=== PATIENT | male | born 1960 | race Caucasian/White ===

== ENCOUNTER 2019-07-14 11:32 | Observation (INO) | payer OTHER ==
[~2019-07-14] VITALS: Ht 188 cm; Wt 90.4 kg
[~2019-07-14 11:32] MED LIST: AMLO5TAB4 PO; ASPI-831 PO; ATOR40TA68 PO; CHOL100062 PO; GLIP10TA14 PO; INSU100I33 SC; LINA5TAB PO; LISI-471 PO; MTF1000T PO; OMEG-135 PO; [UNRECOGNIZED DRUG - CODE] MC
[2019-07-14] MEDS ORDERED: ASPIRIN 81 MG TAB PO STA (11:44)
[2019-07-14] MEDS ORDERED: NITROGLYCERIN 2% 1 GM OINT PKT TD STA (11:44)
[2019-07-14] MEDS ORDERED: NITROGLYCERIN (SL) 0.4 MG TAB SL PRN (12:00)
[2019-07-14] MEDS ORDERED: ACETAMINOPHEN 325 MG TAB PO PRN ×2 (13:30→15:00)
[2019-07-14] MEDS ORDERED: ONDANSETRON 4 MG INJ IV PRN ×2 (13:30→15:00)
[2019-07-14] MEDS ORDERED: LORAZEPAM 0.5 MG TAB PO PRN (15:00)
[2019-07-14] MEDS ORDERED: morphine 2 MG INJ IV PRN (15:00)
[2019-07-14] MEDS ORDERED: ZOLPIDEM 5 MG TAB PO PRN (15:00)
[2019-07-14] MEDS ORDERED: DEXTROSE 50% 50 ML SYRINGE IV PRN ×2 (15:30)
[2019-07-14] MEDS ORDERED: GLUCOSE GEL 15 GRAM TUBE BUCCAL PRN (15:30)
[2019-07-14] MEDS ORDERED: GLUCAGON 1 MG INJ IM PRN (15:30)
[2019-07-14] MEDS ORDERED: GLUCOSE GEL 15 GRAM TUBE PO PRN ×2 (15:30)
[2019-07-14] MEDS: CHOLECALCIFEROL 1,000 UNIT TAB PO SCH (15:49)
[2019-07-14] MEDS: FISH OIL 1,000 MG CAP PO SCH (15:49)
[2019-07-14] MEDS: FAMOTIDINE 20 MG TAB PO SCH ×2 (15:49→22:05)
[2019-07-14] MEDS: DOCUSATE SODIUM 100 MG CAP PO SCH ×2 (15:49→22:05)
[2019-07-14] MEDS: LISINOPRIL 20 MG TAB PO SCH (15:51)
[2019-07-14] MEDS: AMLODIPINE 5 MG TAB PO SCH (15:51)
[2019-07-14] MEDS: INSULIN GLARGINE [LANTus] (100 UNITS/ML) SYG SC SCH (17:15)
[2019-07-14] MEDS: INSULIN ASPART [NOVOLOG] 3 ML PEN SC SCH (17:16)
[2019-07-14] MEDS: ACCU-CHEK XX SCH ×2 (17:26→22:09)
[2019-07-14] MEDS ORDERED: glipiZIDE 10 MG TAB PO SCH (17:30)
[2019-07-14 20:30] VITALS: BP 159/88; PULSE 68; RESP 18; Ht 188 cm; Wt 90.4 kg
[2019-07-14] MEDS ORDERED: ATORVASTATIN 40 MG TAB PO SCH (21:00)
[2019-07-14 23:45] VITALS: BP 159/90; PULSE 70; RESP 18
[2019-07-15] MEDS ORDERED: SUMATRIPTAN 6 MG/0.5 ML INJ SC ONE (00:30)
[2019-07-15] MEDS ORDERED: ACCU-CHEK XX SCH (02:00)
[2019-07-15 03:34] VITALS: BP 117/84; RESP 18
[2019-07-15 07:43] VITALS: BP 132/80; PULSE 70; RESP 18
[2019-07-15] MEDS: ACCU-CHEK XX SCH ×3 (07:58→17:36)
[2019-07-15] MEDS: INSULIN ASPART [NOVOLOG] 3 ML PEN SC SCH ×5 (08:00→17:38)
[2019-07-15] MEDS: INSULIN GLARGINE [LANTus] (100 UNITS/ML) SYG SC SCH (08:00)
[2019-07-15] MEDS: FAMOTIDINE 20 MG TAB PO SCH (08:33)
[2019-07-15] MEDS: CHOLECALCIFEROL 1,000 UNIT TAB PO SCH (08:33)
[2019-07-15] MEDS: DOCUSATE SODIUM 100 MG CAP PO SCH (08:33)
[2019-07-15] MEDS: FISH OIL 1,000 MG CAP PO SCH (08:33)
[2019-07-15] MEDS: LISINOPRIL 20 MG TAB PO SCH (08:33)
[2019-07-15] MEDS: AMLODIPINE 5 MG TAB PO SCH (08:34)
[2019-07-15] MEDS ORDERED: ENOXAPARIN 40 MG/0.4 ML SYG SC SCH (09:00)
[2019-07-15] MEDS ORDERED: ASPIRIN 81 MG TAB PO SCH (09:00)
[2019-07-15] MEDS ORDERED: REGADENOSON 0.4 MG/5 ML SYG ONE (11:23)
[2019-07-15 15:11] VITALS: BP 119/71; PULSE 84; RESP 20
[2019-07-15] MEDS ORDERED: INSULIN ASPART [NOVOLOG] 3 ML PEN SC SCH (18:00)
[2019-07-16] MEDS ORDERED: INSULIN ASPART [NOVOLOG] 3 ML PEN SC SCH (08:00)
[2019-07-16] MEDS ORDERED: INSULIN GLARGINE [LANTus] (100 UNITS/ML) SYG SC SCH (08:00)
== END 2019-07-15 19:35 | disposition home or self-care (01) ==
LOC: E/R 11:32 → 6WM 13:23 → SUATTDRO 14:42
PROVIDERS: ADMIT Family Medicine; ATTEND Family Medicine
DX: I20.0 Unstable angina (principal); I10 Essential (primary) hypertension; E78.5 Hyperlipidemia, unspecified; E11.9 Type 2 diabetes mellitus without complications; R06.02 Shortness of breath; Z79.4 Long term (current) use of insulin
CPT/HCPCS: 36415; 70450; 71045; 78452; 80048; 80061; 82550; 82553; 82962; 83036; 83735; 84443; 84484; 85025; 93005; 93017; 93306; A9500; A9505; J1650; J1815; J2270; J2785; J3030; Z7500; Z7502; Z7610; G0378